=== PATIENT | female | born 1985 | race Caucasian/White ===

== ENCOUNTER 2018-06-07 15:07 | Inpatient (IN) | payer BC ==
[~2018-06-07 15:07] MED LIST: Acetaminophen 325 MG Tab ONE; Prenatal Multivitamin with Calcium/Folic Acid/Iron Tab ONE
[2018-06-07] MEDS ORDERED: Sodium Chloride 0.9% 10 ML SDV FLUSH PRN (16:19)
[2018-06-07] MEDS ORDERED: Nalbuphine 20 MG/ML 1 ML Syringe IVPUSH PRN ×2 (16:19→16:29)
[2018-06-07] MEDS ORDERED: Ampicillin 2 GM in Sodium Chloride 0.9% 100 ML IV STA (16:24)
[2018-06-07] MEDS ORDERED: Ampicillin 2 GM AdvVial IV ONE (16:25)
[2018-06-07] MEDS ORDERED: Ondansetron 4 MG/2 ML SDV IVPUSH PRN ×2 (16:29→17:34)
[2018-06-07] MEDS ORDERED: Lactated Ringers 1,000 ML IV SCH (16:30)
[2018-06-07] MEDS ORDERED: Oxytocin/Lactated Ringers 10 UNIT/1,000 ML BAG IV SCH ×2 (16:30)
--- NOTE | 2018-06-07 16:41 | PCM.LDHP ---
L&D History of Present Illness - General Date of Service: 06/07/18 Admit Problem/Dx: Patient Status Order with Admit Dx/Problem 06/07/18 16:19 Patient Status [ADT] Routine Admission Diagnosis/Problem Admission Diagnosis/Problem Labor established 06/07/18 16:30 33-year-old 3 para 2001 female with a 39-1/7 week intrauterine , active labor, progression of cervical dilation. 06/07/18 16:30 Source of Information: Patient History Limitations: Reports: No Limitations - History of Present Illness Introduction:: Lucina is a 33-year-old 3 para 2002 white female who is admitted in what appears to be active labor. Her cervix has changed from 2+ centimeters to 3 + centimeters and is 90% effaced versus 60% effaced yesterday in clinic. Baby is at a -2 station. This represents a significant change. She is avinash anywhere from 3-7 minutes, moderate intensity, some bloody show was noted. Patient is group B strep and has a history of very fast labor been in the hospital 09 minutes prior to her last baby being born. 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 Patient had menarche at age 18. Cycles every 28 days. Cycles are regular and patient is not using any control time conception. Her son last menstrual period was definite. 2 previous pregnancies include the following : 1. Male born 01[birth year]29/2012 at 40 weeks gestational age who delivered via after 8 hours of labor. 6 lbs. 8 oz. named Ismael 2. Male infant born 01/[birth year]/201539-3/7 weeks'one hour of labor7 lbs. 3 oz[facility] Patient's course was relatively unremarkable. She declined genetic testing at this time. She desires an epidural in labor and delivery. [place] depression screening score on 01/31/2018 was 0. She had her flu shot on 01/03/2018. She plans to breast-feed and bottlefeed. Group B strep screen was positive on urine culture with first visit. She is hypothyroid on medications. T Deppe was given on 04/16/2018 she is rubella immune. Patient's first visit was at 12 weeks and 6 days. Weight gain during the course of was 162.2-183.8 for a 21 pound weight gain. Fundal height growth was appropriate. I will signs remained stable throughout the course. Laboratory testing shows blood to be O+ with negative antibody screen. First hemoglobin was 13.6 g/dL and platelets are 284,000. She is rubella immune. RPR is nonreactive. Culture and first visit showed only rupee strep as pathogen. Chlamydia and gonorrhea assays both negative. TSH at first visit was 5 ,090,000/mL. Second trimester labs showed hemoglobin 11.2 and answered deciliter. Her platelets are 229,000. Direct screen test was normal at 128. RPR is nonreactive. Free T4 on 12/05/2017 and 1.14. TSH on 02/27/2018 was 3.4585 free T4 was 1.10. Allergies: Bee stings which causes swelling Medications: 1. Mupirocin 2% external ointment twice a day when necessary new para 2. Vitamin D3 2000 unit capsules 1 daily 3. Provera HFA inhalation aerosol solution 1-2+ every 6 hours when necessary as directed. Patient does not use this much. 4. Levothyroxine sodium 137 g per day 5. vitamin tabs 1 daily 6. Magnesium 200 mg oral tablet 7. Potassium tablets one daily Past medical history: 1. Hypothyroidism on replacement and clinically euthyroid 2. Normal spontaneous vaginal delivery 2 3. Asthmastable Past surgical history: Unremarkable Family history: 2 children ages 5 and 2 are alive and well. 2 siblings brother age 40 is alive with the exception of 1diabetes mellitus. Sister age 41 alive and well. Mother age 64 is alive and well with the exception of thyroid disease , depression and hypertension. Father age 65 saliva well with the exception of hyperlipidemia, hypertension and thyroid disease. Maternal and paternal aunts and uncles are generally healthy. Paternal grandmother alive in her 80s blind but to cause of blindness uncertain. Maternal grandfather secondary to cause unknown. Paternal grandfather secondary to renal failure and type 2 diabetes. Paternal grandfather causes of and age in unknown. No anesthesia, bleeding, blood clotting problems otherwise noted in the family. Social history: Patient is . 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 I did. Her is Julius. She does not use any significant most alcohol, drugs or tobacco. They live in [place]. Review of systems: In general patient has no complaints. Baby has been active. She is having contractions. Skin: Negative Lungs: No infectious symptoms or shortness of breath Cardiovascular: No chest pain or exercise intolerance Breasts: No lumps, changes in size, pain, dimpling, discharge or axillary or supraclavicular concerns other than those associated with .. GI: Negative : Gravid and size consistent with dates. Musculoskeletal: Negative Neurological: Negative In general the patient is well-developed, well-nourished, pleasant female of stated age in no acute distress. Skin is warm dry without lesions. HEENT, neck and back within normal limits. Lungs are clear with good breath sounds in all lung burgess. Cardiovascular exam shows regular and rhythm without murmurs. Abdomen is paternal with fundal height consistent with dates. Last fundal height clinic was 38 cm. Baby in vertex presentation. Genital cervix is 3+ centimeters, 90% effaced, -2, mid position, very soft, spell presentation, bag riggs intact, bloody show present. Extremities and neurological exam are grossly within normal limits. - Related Data Allergies/Adverse Reactions: Allergies Allergy/AdvReac Type Severity Reaction Status Date / Time No Known Allergies Allergy Verified 01/05/15 19:01 Home Medications: Home Meds Acetaminophen [Tylenol] 650 mg PO Q6H PRN #50 tablet 01/07/15 [Rx] Benzocaine/Menthol [Dermoplast Pain Relief [place]] 1 gm TOP .ASDIRECTED PRN #1 canister 01/07/15 [Rx] Ibuprofen [Motrin] 200 - 800 mg PO Q6H PRN #50 tablet 01/07/15 [Rx] Lanolin [Lansinoh HPA] 1 applic TOP ASDIRECTED PRN #1 tube 01/07/15 [Rx] Past Medical History - Past Health History Medical/Surgical History: Denies Medical/Surgical History Other Respiratory History: inhailer as needed H&P Review of Systems - Review of Systems: Review Of Systems: See Below L&D Exam - Exam Exam: See Below Problem List Initiated/Reviewed/Updated: Yes Orders Last 24hrs: Active Orders 24 hr Category Date Time Status Patient Status [ADT] Routine ADT 06/07/18 16:19 Active Activity as Tolerated [RC] PFP Care 06/07/18 16:19 Active Communication Order [RC] ASDIRECTED Care 06/07/18 16:19 Active Heart Tones [RC] ASDIRECTED Care 06/07/18 16:20 Active Non Stress Test [RC] PER UNIT ROUTINE Care 06/07/18 16:19 Active Notify Provider [RC] PFP Care 06/07/18 16:19 Active Notify Provider [RC] PRN Care 06/07/18 16:19 Active Peripheral IV Care [RC] . DIRECTED Care 06/07/18 16:20 Active Urinary Catheter Assessment [RC] ASDIRECTED Care 06/07/18 16:19 Active Vital Signs [RC] PER UNIT ROUTINE Care 06/07/18 16:19 Active Regular Diet [DIET] Diet 06/07/18 Dinner Active RAPID PLASMA REAGIN,RPR [CHEM] Routine Lab 06/07/18 16:19 Ordered Ampicillin 1 gm Med 06/07/18 20:30 Active Sodium Chloride 0.9% [Normal Saline] 100 ml IV Q4H Ampicillin 2 gm Med 06/07/18 16:24 Active Sodium Chloride 0.9% [Normal Saline] 100 ml IV ONETIME Lactated Ringers [Ringers, Lactated] 1,000 ml Med 06/07/18 16:30 Active IV ASDIRECTED Nalbuphine [Nubain] Med 06/07/18 16:19 Active 10 mg IVPUSH Q2H PRN Sodium Chloride 0.9% [Normal Saline] Med 06/07/18 16:19 Active 10 ml FLUSH ASDIRECTED PRN Electronic Heart Tones Ext w TOCO [WOMSER] Oth 06/07/18 16:19 Ordered Routine Electronic Heart Tones Internal [WOMSER] Per Unit Oth 06/07/18 16:19 Ordered Routine Peripheral IV Insertion Adult [OM.PC] Routine Oth 06/07/18 16:19 Ordered Resuscitation Status Routine Resus Stat 06/07/18 16:19 Ordered Medication Orders Ampicillin Sodium 2 gm/ Sodium (Chloride) 100 mls @ 200 mls/hr IV ONETIME STA Stop: 06/07/18 16:53 Ampicillin Sodium 1 gm/ Sodium (Chloride) 100 mls @ 200 mls/hr IV Q4H RADHA Lactated Ringer's (Ringers, Lactated) 1,000 mls @ 100 mls/hr IV ASDIRECTED RADHA Nalbuphine HCl (Nubain) 10 mg IVPUSH Q2H PRN PRN Reason: pain Sodium Chloride (Normal Saline) 10 ml FLUSH ASDIRECTED PRN PRN Reason: Keep Vein Open Assessment/Plan Comment:: 1. 39-1/7 week intrauterine , active labor with cervical change. 2. Group B strep screen positive-patient candidate for ampicillin group B strep prophylaxis per protocol. 3. Desires epidural in labor and delivery 4. Rubella titer immune 5. Center flu shot and her T dap 6. Has a history of very fast labors. Was on hospital 9 minutes, after relatively pain-free labor, prior to delivery with her last . 7. Patient plans to bottle feed and breast-feed. Plan: 1. Patient wishes to stay in the hospital as she would like to have an epidural. 2. Epidural for labor and analgesia 3. Group B strep prophylaxis with ampicillin per protocol 4. Anticipate normal spontaneous vaginal delivery. 5. Patient plans to breast-feed and bottlefeed also.
[2018-06-07] MEDS ORDERED: diphenhydrAMINE 50 MG/ML SDV IVPUSH PRN (17:34)
[2018-06-07] MEDS ORDERED: fentaNYL 100 MCG/2 ML SDV EPIDUR PRN (17:34)
[2018-06-07] MEDS ORDERED: ePHEDrine 50 MG/ML SDV IVPUSH PRN (17:34)
[2018-06-07] MEDS ORDERED: fentaNYL/Bupivacaine-NS 2 MCG/ML-0.125%/PF 100 ML Bag EP SCH (17:45)
--- NOTE | 2018-06-07 18:18 | PCM.PREANE ---
Preanesthetic Assessment - Procedure Proposed Procedure: MARIA G - Anesthesia/Transfusion/Family Hx Anesthesia History: Prior Anesthesia Without Reaction Family History of Anesthesia Reaction: No Transfusion History: No Prior Transfusion(s) - Review of Systems General: No Symptoms Pulmonary: No Symptoms Cardiovascular: No Symptoms Gastrointestinal: No Symptoms Neurological: No Symptoms Other: Reports: Thyroid Problems (hypothyroid) - Physical Assessment NPO Status Date: 06/07/18 NPO Status Time: 15:00 Respiratory Rate: 16 Vital Signs: Last Vital Signs Temp 37.1 C 06/07/18 16:19 Pulse 75 06/07/18 16:19 Resp 16 06/07/18 16:19 BP 120/74 06/07/18 16:19 Pulse Ox Height: 1.65 m Weight: 80.739 kg ASA Class: 2 Mental Status: Alert & Oriented x3 Airway Class: Mallampati = 1 Dentition: Reports: Normal Dentition Thyro-Mental Finger Breadths: 3 Mouth Opening Finger Breadths: 3 ROM/Head Extension: Full Lungs: Clear to Auscultation, Normal Respiratory Effort Cardiovascular: Regular Rate, Regular Rhythm - Lab Values: Laboratory Last Values WBC 9.58 K/mm3 (3.98-10.04) 06/07/18 16:35 RBC 4.09 M/mm3 (3.98-5.22) 06/07/18 16:35 Hgb 11.3 gm/L (11.2-15.7) 06/07/18 16:35 Hct 34.3 % (34.1-44.9) 06/07/18 16:35 MCV 83.9 fl (79.4-94.8) 06/07/18 16:35 MCH 27.6 pg (25.6-32.2) 06/07/18 16:35 MCHC 32.9 g/dl (32.2-35.5) 06/07/18 16:35 RDW Std Deviation 40.0 fL (36.4-46.3) 06/07/18 16:35 Plt Count 196 K/mm3 (182-369) 06/07/18 16:35 MPV 10.4 fl (9.4-12.3) 06/07/18 16:35 Neut % (Auto) 83.1 % (34.0-71.1) H 06/07/18 16:35 Lymph % (Auto) 9.4 % (19.3-51.7) L 06/07/18 16:35 [place] % (Auto) 5.6 % (4.7-12.5) 06/07/18 16:35 Eos % (Auto) 0.2 (0.7-5.8) L 06/07/18 16:35 Baso % (Auto) 0.2 % (0.1-1.2) 06/07/18 16:35 Neut # (Auto) 7.96 K/mm3 (1.56-6.13) H 06/07/18 16:35 Lymph # (Auto) 0.90 K/mm3 (1.18-3.74) L 06/07/18 16:35 [place] # (Auto) 0.54 K/mm3 (0.24-0.36) H 06/07/18 16:35 Eos # (Auto) 0.02 K/mm3 (0.04-0.36) L 06/07/18 16:35 Baso # (Auto) 0.02 K/mm3 (0.01-0.08) 06/07/18 16:35 Manual Slide Review Abnormal smear 06/07/18 16:35 - Allergies Allergies/Adverse Reactions: Allergies Allergy/AdvReac Type Severity Reaction Status Date / Time No Known Allergies Allergy Verified 01/05/15 19:01 - Blood Blood Available: No Product(s) Available: None - Anesthesia Plan Pre-Op Medication Ordered: None - Acknowledgements Anesthesia Type Planned: Epidural Pt an Appropriate Candidate for the Planned Anesthesia: Yes Alternatives and Risks of Anesthesia Discussed w Pt/Guardian: Yes Pt/Guardian Understands and Agrees with Anesthesia Plan: Yes PreAnesthesia Questionnaire - Past Health History Medical/Surgical History: Denies Medical/Surgical History Other Respiratory History: 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: - SUBSTANCE USE Smoking Status *Q: Never Smoker Second Hand Smoke Exposure: No Recreational Drug Use History: No - HOME MEDS Home Medications: Home Meds Acetaminophen [Tylenol] 650 mg PO Q6H PRN #50 tablet 01/07/15 [Rx] Benzocaine/Menthol [Dermoplast Pain Relief [place]] 1 gm TOP .ASDIRECTED PRN #1 canister 01/07/15 [Rx] Ibuprofen [Motrin] 200 - 800 mg PO Q6H PRN #50 tablet 01/07/15 [Rx] Lanolin [Lansinoh HPA] 1 applic TOP ASDIRECTED PRN #1 tube 01/07/15 [Rx] - CURRENT (IN HOUSE) MEDS Current Meds: Current Medications Diphenhydramine HCl (Benadryl) 25 mg IVPUSH Q6H PRN PRN Reason: Pruritis Ephedrine Sulfate (Ephedrine Sulfate) 5 mg IVPUSH ASDIRECTED PRN PRN Reason: Hypotension Fentanyl (Sublimaze) 100 mcg EPIDUR Q3H PRN PRN Reason: Pain Last Admin: 06/07/18 18:00 Dose: 100 mcg Fentanyl/Bupivacaine HCl (Yzwtbvfr-Thdjp-Gm 2 Mcg/Ml-0.125%) 100 ml EP ASDIRECTED RADHA Last Admin: 06/07/18 18:01 Dose: 100 ml Ampicillin Sodium 1 gm/ Sodium (Chloride) 100 mls @ 200 mls/hr IV Q4H RADHA Lactated Ringer's (Ringers, Lactated) 1,000 mls @ 100 mls/hr IV ASDIRECTED RADHA Oxytocin/Lactated Ringer's (Pitocin In Lr 10 Units/1,000 Ml) 10 unit in 1,000 mls @ 500 mls/hr IV .CONTINUOUS RADHA Oxytocin/Lactated Ringer's (Pitocin In Lr 10 Units/1,000 Ml) 10 unit in 1,000 mls @ 12 mls/hr IV TITRATE RADHA; Protocol Nalbuphine HCl (Nubain) 10 mg IVPUSH Q2H PRN PRN Reason: pain Ondansetron HCl (Zofran) 4 mg IVPUSH Q4H PRN PRN Reason: Nausea/Vomiting Ondansetron HCl (Zofran) 4 mg IVPUSH ONETIME PRN PRN Reason: Nausea/Vomiting Sodium Chloride (Normal Saline) 10 ml FLUSH ASDIRECTED PRN PRN Reason: Keep Vein Open Discontinued Medications Ampicillin Sodium (Ampicillin) Confirm Administered Dose 2 gm IV .STK-MED ONE Stop: 06/07/18 16:26 Ampicillin Sodium 2 gm/ Sodium (Chloride) 100 mls @ 200 mls/hr IV ONETIME STA Stop: 06/07/18 16:53 Last Admin: 06/07/18 16:37 Dose: 200 mls/hr Nalbuphine HCl (Nubain) 10 mg IVPUSH Q2H PRN PRN Reason: pain
--- NOTE | 2018-06-07 19:00 | PCM.SN ---
- Free Text/Narrative Note: Lucina is a 33-year-old 3 now para 3003 white female was admitted on the afternoon of 06/07/2018 at 39-1/7 weeks gestational age in labor. She had progressed in cervical dilation from 2 cm/50% effaced on 06/06/2018 to 3+ centimeters, 90% effaced, -2 station, mid position, cephalic presentation with bulging bag of riggs. She is avinash every 3-7 minutes, moderate intensity. She had a history of previous delivery occurring 9 minutes after she arrived at the hospital after relatively asymptomatic labor. Decision was made to keep her, start her on some ampicillin for group B strep positive status and to deliver with this hospital visit. She progressed rapidly to complete cervical dilation. She had an epidural placed for labor analgesia. She delivered a viable, alexander, female infant with Apgars of 8 and 9, a weight of 3140 g (6 pounds 14.8 ounces), a length of 19.0 inches in a left occiput anterior position at 1835 hrs. on 06/07/2018. The baby was placed on mom's abdomen and nose and mouth were bulb suctioned. Pitocin was started IV to increase uterine tone and decrease likelihood of bleeding. Cord was allowed to pulsate for approximately 1 minute and then was clamped 2 and cut by the baby's father. Cord blood was obtained. The patient was noted to have a first-degree perineal laceration which was repaired with a single [id number] of 3-0 Monocryl. Placenta delivered intact in a Jo presentation. It appeared complete and was discarded per patient desire. Estimated blood loss was approximately 100 mL. Condition: Good. Patient plans to breast-feed and bottlefeed.
[2018-06-07] MEDS ORDERED: Benzocaine/Menthol 20%-0.5% Spray 56 GM Canister TOP PRN (19:24)
[2018-06-07] MEDS ORDERED: Docusate Sodium 100 MG Cap PO PRN (19:24)
[2018-06-07] MEDS ORDERED: Witch Hazel Medicated Pads 100/Jar TOP PRN (19:24)
[2018-06-07] MEDS ORDERED: Lanolin 100% Cream 7 GM Tube TOP PRN (19:24)
[2018-06-07] MEDS ORDERED: Acetaminophen 325 MG Tab PO PRN (19:24)
[2018-06-07] MEDS ORDERED: Ampicillin 1 GM in Sodium Chloride 0.9% 100 ML IV SCH (20:30)
[2018-06-07] MEDS: Ibuprofen 600 MG Tab PO PRN (21:00)
[2018-06-07] MEDS ORDERED: Bupivacaine 0.25% 10 ML SDV ONE (22:00)
[2018-06-07] MEDS ORDERED: Lidocaine 1.5% with EPINEPHrine 1:200,000 5 ML Amp ONE (22:00)
[2018-06-08] MEDS: Ibuprofen 600 MG Tab PO PRN ×3 (02:53→20:37)
[2018-06-08] MEDS ORDERED: Prenatal Multivitamin with Calcium/Folic Acid/Iron Tab PO SCH (09:00)
--- NOTE | 2018-06-08 11:36 | PCM.SN ---
- Free Text/Narrative Note: Post Progress Note PPD # 1 Subjective: Doing well overall. Ambulating without difficulty. Lochia minimal. Voiding without difficulty. Tolerating regular diet without nausea or vomiting. Pain controlled with oral medications. Breast-feeding with minimal difficulty. Denies any headaches, vision changes, epigastric pain or shortness of breath. Objective: Vitals: Vital Signs - 24 hr 06/07/18 06/07/18 06/07/18 15:28 15:32 16:03 Temperature Temperature [ Tympanic] Pulse, 88 100 86 Peripheral Pulse, Peripheral [ Left Pulse Oximetry] Respiratory Rate Blood Pressure 120/74 Blood Pressure [Left Arm] O2 Sat by Pulse Oximetry 06/07/18 06/07/18 06/07/18 16:19 16:32 17:02 Temperature Temperature [ 37.1 C Tympanic] Pulse, 83 109 H Peripheral Pulse, 75 Peripheral [ Left Pulse Oximetry] Respiratory 16 Rate Blood Pressure Blood Pressure 120/74 [Left Arm] O2 Sat by Pulse Oximetry 06/07/18 06/07/18 06/07/18 17:33 18:00 18:18 Temperature Temperature [ Tympanic] Pulse, 112 H 84 Peripheral Pulse, Peripheral [ Left Pulse Oximetry] Respiratory 16 Rate Blood Pressure 131/60 Blood Pressure [Left Arm] O2 Sat by Pulse Oximetry 06/07/18 06/07/18 06/07/18 18:30 19:15 19:30 Temperature Temperature [ Tympanic] Pulse, 148 H 80 80 Peripheral Pulse, Peripheral [ Left Pulse Oximetry] Respiratory Rate Blood Pressure 101/50 L 109/64 119/63 Blood Pressure [Left Arm] O2 Sat by Pulse Oximetry 06/07/18 06/08/18 06/08/18 20:00 03:28 08:38 Temperature 36.3 C 36.7 C Temperature [ Tympanic] Pulse, 78 54 L 59 L Peripheral Pulse, Peripheral [ Left Pulse Oximetry] Respiratory 16 16 Rate Blood Pressure 126/73 128/91 H 137/96 H Blood Pressure [Left Arm] O2 Sat by Pulse 99 100 Oximetry Physical Exam General: Alert and oriented, no acute distress Lungs: Clear to auscultation bilaterally Heart: Regular rate and rhythm Abdomen: Soft, minimal appropriate tenderness, non-distended, fundus midline, nontender, and 2 finger breadths below the umbilicus Extremities: Trace edema in bilateral lower extremities to mid shins Laboratory Tests 06/07/18 06/08/18 06/08/18 Range/Units 16:35 10:14 10:14 WBC 9.58 12.09 H (3.98-10.04) K/mm3 RBC 4.09 3.87 L (3.98-5.22) M/mm3 Hgb 11.3 10.7 L (11.2-15.7) gm/L Hct 34.3 32.3 L (34.1-44.9) % MCV 83.9 83.5 (79.4-94.8) fl MCH 27.6 27.6 (25.6-32.2) pg MCHC 32.9 33.1 (32.2-35.5) g/dl RDW Std Deviation 40.0 39.1 (36.4-46.3) fL Plt Count 196 195 (182-369) K/mm3 MPV 10.4 10.7 (9.4-12.3) fl Neut % (Auto) 83.1 H (34.0-71.1) % Lymph % (Auto) 9.4 L (19.3-51.7) % [place] % (Auto) 5.6 (4.7-12.5) % Eos % (Auto) 0.2 L (0.7-5.8) Baso % (Auto) 0.2 (0.1-1.2) % Neut # (Auto) 7.96 H (1.56-6.13) K/mm3 Lymph # (Auto) 0.90 L (1.18-3.74) K/mm3 [place] # (Auto) 0.54 H (0.24-0.36) K/mm3 Eos # (Auto) 0.02 L (0.04-0.36) K/mm3 Baso # (Auto) 0.02 (0.01-0.08) K/mm3 Manual Slide Review Abnormal smear Sodium 137 (136-145) mEq/L Potassium 3.7 (3.5-5.1) mEq/L Chloride 105 (98-107) mEq/L Carbon Dioxide 22 (21-32) mEq/L Anion Gap 13.7 (5-15) BUN 9 (7-18) mg/dL Creatinine 0.5 L (0.55-1.02) mg/dL Est Cr Clr Drug Dosing 146.70 mL/min Estimated GFR (MDRD) > 60 (>60) mL/min BUN/Creatinine Ratio 18.0 (14-18) Glucose 85 (74-106) mg/dL Calcium 8.4 L (8.5-10.1) mg/dL Total Bilirubin 0.4 (0.2-1.0) mg/dL AST 23 (15-37) U/L ALT 21 (14-59) U/L Alkaline Phosphatase 96 (46-116) U/L Total Protein 5.9 L (6.4-8.2) g/dl Albumin 2.3 L (3.4-5.0) g/dl Globulin 3.6 gm/dL Albumin/Globulin Ratio 0.6 L (1-2) ASSESSMENT: 33-year-old female s/p normal vaginal delivery PPD #1, complicated by GBS positive and received 1 dose of ampicillin, hypothyroidism and asthma PLAN: Doing well Plan to check CBC, CMP and urine protein/creatinine ratio to rule out possible preeclampsia. Patient does not have any significant symptoms. Suspect that this may be mild gestational hypertension. Breast-feeding with minimal difficulty. Assist as needed Lochia minimal. Continue to monitor for appropriate lochia. Continue routine care Anticipate discharge home tomorrow Óscar Smith MD 11:35 AM 06/08/2018
--- NOTE | 2018-06-08 17:28 | PCM48HPAN ---
Post Anesthesia Note - EVALUATION WITHIN 48HRS OF ANESTHETIC Vital Signs in Normal Range: Yes Patient Participated in Evaluation: Yes Respiratory Function Stable: Yes Airway Patent: Yes Cardiovascular Function Stable: Yes Hydration Status Stable: Yes Pain Control Satisfactory: Yes Nausea and Vomiting Control Satisfactory: Yes Mental Status Recovered: Yes - COMMENTS/OBSERVATIONS Free Text/Narrative:: Patient denies any anesthetic complications.
--- NOTE | 2018-06-09 09:46 | PCM.SN ---
- Free Text/Narrative Note: Post Progress Note PPD # 2 Subjective: Doing well overall. Ambulating without difficulty. Lochia minimal. Voiding without difficulty. Tolerating regular diet without nausea or vomiting. Pain controlled with oral medications. Breast-feeding and bottle feeding with minimal difficulty. Objective: Vitals: Vital Signs - 24 hr 06/08/18 06/08/18 06/08/18 13:28 16:05 20:39 Temperature 36.5 C 36.6 C 36.5 C Pulse, 63 63 63 Peripheral Respiratory 16 16 17 Rate Blood Pressure 120/72 124/65 123/68 O2 Sat by Pulse 99 100 98 Oximetry Physical Exam General: Alert and oriented, no acute distress Lungs: Clear to auscultation bilaterally Heart: Regular rate and rhythm Abdomen: Soft, minimal appropriate tenderness, non-distended, fundus midline, nontender, and 2 finger breadths below the umbilicus Extremities: No edema Laboratory Results - last 24 hr 06/08/18 06/08/18 Range/Units 10:14 10:14 WBC 12.09 H (3.98-10.04) K/mm3 RBC 3.87 L (3.98-5.22) M/mm3 Hgb 10.7 L (11.2-15.7) gm/L Hct 32.3 L (34.1-44.9) % MCV 83.5 (79.4-94.8) fl MCH 27.6 (25.6-32.2) pg MCHC 33.1 (32.2-35.5) g/dl RDW Std Deviation 39.1 (36.4-46.3) fL Plt Count 195 (182-369) K/mm3 MPV 10.7 (9.4-12.3) fl Sodium 137 (136-145) mEq/L Potassium 3.7 (3.5-5.1) mEq/L Chloride 105 (98-107) mEq/L Carbon Dioxide 22 (21-32) mEq/L Anion Gap 13.7 (5-15) BUN 9 (7-18) mg/dL Creatinine 0.5 L (0.55-1.02) mg/dL Est Cr Clr Drug Dosing 146.70 mL/min Estimated GFR (MDRD) > 60 (>60) mL/min BUN/Creatinine Ratio 18.0 (14-18) Glucose 85 (74-106) mg/dL Calcium 8.4 L (8.5-10.1) mg/dL Total Bilirubin 0.4 (0.2-1.0) mg/dL AST 23 (15-37) U/L ALT 21 (14-59) U/L Alkaline Phosphatase 96 (46-116) U/L Total Protein 5.9 L (6.4-8.2) g/dl Albumin 2.3 L (3.4-5.0) g/dl Globulin 3.6 gm/dL Albumin/Globulin Ratio 0.6 L (1-2) ASSESSMENT: 33-year-old female s/p normal vaginal delivery PPD #2, complicated by GBS positive and received 1 dose of ampicillin, hypothyroidism and asthma PLAN: Doing well Patient with normal labs after her elevated blood pressures yesterday. No additional blood pressure elevations throughout the day. Breast-feeding and bottlefeeding with minimal difficulty. Assist as needed Lochia minimal. Continue to monitor for appropriate lochia. Continue routine care Discharge home today Óscar Smith MD 9:44 AM 06/09/2018
--- NOTE | 2018-06-09 09:50 | PCM.DCSUM1 ---
Discharge Summary - Hospital Course Free Text/Narrative:: Lucina is a 33-year-old 3 now para 3003 white female was admitted on the afternoon of 06/07/2018 at 39-1/7 weeks gestational age in labor. She had progressed in cervical dilation from 2 cm/50% effaced on 06/06/2018 to 3+ centimeters, 90% effaced, -2 station, mid position, cephalic presentation with bulging bag of riggs. She is avinash every 3-7 minutes, moderate intensity. She had a history of previous delivery occurring 9 minutes after she arrived at the hospital after relatively asymptomatic labor. Decision was made to keep her, start her on some ampicillin for group B strep positive status and to deliver with this hospital visit. She progressed rapidly to complete cervical dilation. She had an epidural placed for labor analgesia. She delivered a viable, alexander, female infant with Apgars of 8 and 9, a weight of 3140 g (6 pounds 14.8 ounces), a length of 19.0 inches in a left occiput anterior position at 1835 hrs. on 06/07/2018. The baby was placed on mom's abdomen and nose and mouth were bulb suctioned. Pitocin was started IV to increase uterine tone and decrease likelihood of bleeding. Cord was allowed to pulsate for approximately 1 minute and then was clamped 2 and cut by the baby's father. Cord blood was obtained. The patient was noted to have a first-degree perineal laceration which was repaired with a single [id number] of 3-0 Monocryl. Placenta delivered intact in a Jo presentation. It appeared complete and was discarded per patient desire. Estimated blood loss was approximately 100 mL. Condition: Good. Patient plans to breast-feed and bottlefeed. HPI Initial Comments: Lucina is a 33-year-old 3 now para 3003 white female was admitted on the afternoon of 06/07/2018 at 39-1/7 weeks gestational age in labor. She had progressed in cervical dilation from 2 cm/50% effaced on 06/06/2018 to 3+ centimeters, 90% effaced, -2 station, mid position, cephalic presentation with bulging bag of riggs. She is avinash every 3-7 minutes, moderate intensity. She had a history of previous delivery occurring 9 minutes after she arrived at the hospital after relatively asymptomatic labor. Decision was made to keep her, start her on some ampicillin for group B strep positive status and to deliver with this hospital visit. She progressed rapidly to complete cervical dilation. She had an epidural placed for labor analgesia. She delivered a viable, alexander, female with Apgars of 8 and 9, a weight of 3140 g (6 pounds 14.8 ounces), a length of 19.0 inches in a left occiput anterior position at 1835 hrs. on 06/07/2018. The baby was placed on mom's abdomen and nose and mouth were bulb suctioned. Pitocin was started IV to increase uterine tone and decrease likelihood of bleeding. Cord was allowed to pulsate for approximately 1 minute and then was clamped 2 and cut by the baby's father. Cord blood was obtained. The patient was noted to have a first-degree perineal laceration which was repaired with a single evyhle-mp-apojf of 3-0 Monocryl. Placenta delivered intact in a Jo presentation. It appeared complete and was discarded per patient desire. Estimated blood loss was approximately 100 mL. Condition: Good. Patient plans to breast-feed and bottlefeed. Brief History: Lucina is a 33-year-old 3 now para 3003 white female was admitted on the afternoon of 06/07/2018 at 39-1/7 weeks gestational age in labor. She had progressed in cervical dilation from 2 cm/50% effaced on 2018 to 3+ centimeters, 90% effaced, -2 station, mid position, cephalic presentation with bulging bag of riggs. She is avinash every 3-7 minutes, moderate intensity. She had a history of previous delivery occurring 9 minutes after she arrived at the hospital after relatively asymptomatic labor. Decision was made to keep her, start her on some ampicillin for group B strep positive status and to deliver with this hospital visit. She progressed rapidly to complete cervical dilation. She had an epidural placed for labor analgesia. She delivered a viable, alexander, female infant with Apgars of 8 and 9, a weight of 3140 g (6 pounds 14.8 ounces), a length of 19.0 inches in a left occiput anterior position at 1835 hrs. on 06/07/2018. The baby was placed on mom's abdomen and nose and mouth were bulb suctioned. Pitocin was started IV to increase uterine tone and decrease likelihood of bleeding. Cord was allowed to pulsate for approximately 1 minute and then was clamped 2 and cut by the baby' s father. Cord blood was obtained. The patient was noted to have a first- degree perineal laceration which was repaired with a single ctpfkz-dd-aowcu of 3 -0 Monocryl. Placenta delivered intact in a Jo presentation. It appeared complete and was discarded per patient desire. Estimated blood loss was approximately 100 mL. Condition: Good. Patient plans to breast-feed and bottlefeed. Diagnosis: Stroke: No - Discharge Data Discharge Date: 06/09/18 Discharge Disposition: Home, Self-Care 01 Condition: Good - Discharge Diagnosis/Problem(s) (1) 39 weeks gestation of SNOMED Code(s): 23101052 ICD Code: Z3A.39 - 39 WEEKS GESTATION OF Status: Acute Current Visit: Yes (2) Asthma affecting , antepartum SNOMED Code(s): 895599328, 550150022 ICD Code: O99.519 - DISEASES OF THE RESP SYS COMP , UNSP TRIMESTER; J45.909 - UNSPECIFIED ASTHMA, UNCOMPLICATED Status: Acute Current Visit: Yes (3) Hypothyroid in , antepartum SNOMED Code(s): 056632335 ICD Code: O99.280 - ENDO, NUTRITIONAL AND METAB DISEASES COMP PREG, UNSP TRI ; E03.9 - HYPOTHYROIDISM, UNSPECIFIED Status: Acute Current Visit: Yes (4) GBS (group B Streptococcus carrier), +RV culture, currently SNOMED Code(s): 6313142800760, 566933448, 5688558917718 ICD Code: O99.820 - STREPTOCOCCUS B CARRIER STATE COMPLICATING Status: Acute Current Visit: Yes (5) Vaginal delivery SNOMED Code(s): 788783934 ICD Code: O80 - ENCOUNTER FOR FULL-TERM UNCOMPLICATED DELIVERY Status: Acute Current Visit: Yes (6) First degree laceration of perineum, delivered, current hospitalization SNOMED Code(s): 109009177, 277089863 ICD Code: O70.0 - FIRST DEGREE PERINEAL LACERATION DURING DELIVERY Status: Acute Current Visit: No - Patient Summary/Data Operative Procedure(s) Performed: None Complications: None Hospital Course: Lucina Salmon was admitted for spontaneous labor. On admission her cervix was dilated to 3+ cm. She was GBS positive and was started on ampicillin for GBS prophylaxis. She received a total of 1 dose prior to delivery. She was given an epidural for anesthesia. She progressed to complete and began pushing. On 06/07/2018 she had a normal vaginal delivery of a live female infant at 1835. Apgars of 8 and 9. Weight of 3140 g (6 pounds 14.8 ounces). Her course was complicated by mild elevations of blood pressure on the morning of day #1. She had labs performed that were not consistent with preeclampsia and suspected that she may have had a small amount of gestational hypertension in the period. Her pain was well controlled and she had minimal lochia. She was ambulating, tolerating a regular diet and voiding normally. She was breast and bottle feeding with minimal difficulty. She was afebrile and her hematocrit was 32.3 on day #1. She desired to be discharged home on the morning of PPD #2. Her blood type is O+. - Patient Instructions Diet: Regular Diet as Tolerated Activity: Apply Ice, As Tolerated Activity, Other: Nothing in the vagina for 6 weeks Driving: May Drive Today Showering/Bathing: May Shower Notify Provider of: Fever, Increased Pain, Swelling and Redness, Drainage, Nausea and/or Vomiting Other/Special Instructions: Please contact your physician's office if you have heavy vaginal bleeding enough to soak a pad in less than an hour for several hours. Monitor for any signs of an infection in the breasts with severe pain or redness of the breast. - Discharge Plan *PRESCRIPTION DRUG MONITORING PROGRAM REVIEWED*: Not Applicable *COPY OF PRESCRIPTION DRUG MONITORING REPORT IN PATIENT SHERLY: Not Applicable Home Medications: Home Meds Acetaminophen [Tylenol] 650 mg PO Q6H PRN #50 tablet 01/07/15 [Rx] Benzocaine/Menthol [Dermoplast Pain Relief [place]] 1 gm TOP .ASDIRECTED PRN #1 canister 01/07/15 [Rx] Ibuprofen [Motrin] 200 - 800 mg PO Q6H PRN #50 tablet 01/07/15 [Rx] Lanolin [Lansinoh HPA] 1 applic TOP ASDIRECTED PRN #1 tube 01/07/15 [Rx] Docusate Sodium [Colace] 100 mg PO BID PRN cap 06/09/18 [Rx] Vit with Ca/FA/Iron [ Plus Iron] 1 each PO DAILY tablet [Rx] Carin Song [Tucks] 1 pad TOP ASDIRECTED PRN pad 06/09/18 [Rx] Patient Handouts: Home Care Instructions for Mom, Care After Vaginal Delivery Referrals: Sánchez Pozo MD [Primary Care Provider] - (Follow-up in 2-3 weeks for routine visit or earlier as needed.) - Discharge Summary/Plan Comment DC Time >30 min.: No - Patient Data Vitals - Most Recent: Last Vital Signs Temp 36.5 C 06/08/18 20:39 Pulse 63 06/08/18 20:39 Resp 17 06/08/18 20:39 BP 123/68 06/08/18 20:39 Pulse Ox 98 06/08/18 20:39 Weight - Most Recent: 80.739 kg I&O - Last 24 hours: Intake & Output 06/08/18 06/09/18 06/09/18 22:59 06:59 14:59 Intake Total 120 Balance 120 Lab Results - Last 24 hrs: Laboratory Results - last 24 hr 06/08/18 06/08/18 Range/Units 10:14 10:14 WBC 12.09 H (3.98-10.04) K/mm3 RBC 3.87 L (3.98-5.22) M/mm3 Hgb 10.7 L (11.2-15.7) gm/L Hct 32.3 L (34.1-44.9) % MCV 83.5 (79.4-94.8) fl MCH 27.6 (25.6-32.2) pg MCHC 33.1 (32.2-35.5) g/dl RDW Std Deviation 39.1 (36.4-46.3) fL Plt Count 195 (182-369) K/mm3 MPV 10.7 (9.4-12.3) fl Sodium 137 (136-145) mEq/L Potassium 3.7 (3.5-5.1) mEq/L Chloride 105 (98-107) mEq/L Carbon Dioxide 22 (21-32) mEq/L Anion Gap 13.7 (5-15) BUN 9 (7-18) mg/dL Creatinine 0.5 L (0.55-1.02) mg/dL Est Cr Clr Drug Dosing 146.70 mL/min Estimated GFR (MDRD) > 60 (>60) mL/min BUN/Creatinine Ratio 18.0 (14-18) Glucose 85 (74-106) mg/dL Calcium 8.4 L (8.5-10.1) mg/dL Total Bilirubin 0.4 (0.2-1.0) mg/dL AST 23 (15-37) U/L ALT 21 (14-59) U/L Alkaline Phosphatase 96 (46-116) U/L Total Protein 5.9 L (6.4-8.2) g/dl Albumin 2.3 L (3.4-5.0) g/dl Globulin 3.6 gm/dL Albumin/Globulin Ratio 0.6 L (1-2) Med Orders - Current: Current Medications Acetaminophen (Tylenol) 650 mg PO Q4H PRN PRN Reason: mild pain or fever Last Admin: 06/08/18 16:10 Dose: 650 mg Benzocaine/Menthol (Dermoplast Pain Relief [place]) 0 gm TOP ASDIRECTED PRN PRN Reason: Perineal Comfort Measure Last Admin: 06/07/18 21:00 Dose: 1 can Docusate Sodium (Colace) 100 mg PO BID PRN PRN Reason: Constipation Emollient Ointment (Lansinoh Hpa) 0 gm TOP ASDIRECTED PRN PRN Reason: Sore Nipples Last Admin: 06/07/18 21:01 Dose: 1 tube Ibuprofen (Motrin) 600 mg PO Q4H PRN PRN Reason: Mild pain or fever Last Admin: 06/08/18 20:37 Dose: 600 mg Prenat Multivit/Special Events Driver/Iron/Folic Ac ( Plus Iron) 1 each PO DAILY RADHA Last Admin: 06/08/18 10:16 Dose: 1 each Witch Nohemi (Tucks) 1 pad TOP ASDIRECTED PRN PRN Reason: Hemorrhoid pain Last Admin: 06/07/18 21:00 Dose: 1 container Discontinued Medications Ampicillin Sodium (Ampicillin) Confirm Administered Dose 2 gm IV .STK-MED ONE Stop: 06/07/18 16:26 Last Admin: 06/07/18 22:24 Dose: Not Given Diphenhydramine HCl (Benadryl) 25 mg IVPUSH Q6H PRN PRN Reason: Pruritis Ephedrine Sulfate (Ephedrine Sulfate) 5 mg IVPUSH ASDIRECTED PRN PRN Reason: Hypotension Fentanyl (Sublimaze) 100 mcg EPIDUR Q3H PRN PRN Reason: Pain Last Admin: 06/07/18 18:00 Dose: 100 mcg Fentanyl/Bupivacaine HCl (Ylrveecz-Fbjnd-Ew 2 Mcg/Ml-0.125%) 100 ml EP ASDIRECTED RADHA Last Admin: 06/07/18 18:01 Dose: 100 ml Ampicillin Sodium 2 gm/ Sodium (Chloride) 100 mls @ 200 mls/hr IV ONETIME STA Stop: 06/07/18 16:53 Last Admin: 06/07/18 16:37 Dose: 200 mls/hr Ampicillin Sodium 1 gm/ Sodium (Chloride) 100 mls @ 200 mls/hr IV Q4H RADHA Lactated Ringer's (Ringers, Lactated) 1,000 mls @ 100 mls/hr IV ASDIRECTED RADHA Last Admin: 06/07/18 16:00 Dose: 100 mls/hr Oxytocin/Lactated Ringer's (Pitocin In Lr 10 Units/1,000 Ml) 10 unit in 1,000 mls @ 500 mls/hr IV .CONTINUOUS RADHA Last Admin: 06/07/18 17:35 Dose: 500 mls/hr Oxytocin/Lactated Ringer's (Pitocin In Lr 10 Units/1,000 Ml) 10 unit in 1,000 mls @ 12 mls/hr IV TITRATE RADHA; Protocol Nalbuphine HCl (Nubain) 10 mg IVPUSH Q2H PRN PRN Reason: pain Nalbuphine HCl (Nubain) 10 mg IVPUSH Q2H PRN PRN Reason: pain Ondansetron HCl (Zofran) 4 mg IVPUSH Q4H PRN PRN Reason: Nausea/Vomiting Ondansetron HCl (Zofran) 4 mg IVPUSH ONETIME PRN PRN Reason: Nausea/Vomiting Sodium Chloride (Normal Saline) 10 ml FLUSH ASDIRECTED PRN PRN Reason: Keep Vein Open
[2018-06-09 10:24] VITALS: BP 132/85
== END 2018-06-09 11:30 | disposition home or self-care (01) | DRG 560 ==
LOC: JD.OBCHECK 15:07 → JD.OB 15:07 → JD.OBCHECK 16:19 → OBSVTOIN 18:35 → JD.OB 18:36
PROVIDERS: ADMIT Obstetrics & Gynecology; ATTEND Obstetrics & Gynecology
PROC: 10E0XZZ Delivery of Products of Conception, External Approach (ICD-10-PCS; principal; 2018-06-07)
PROC: 0HQ9XZZ Repair Perineum Skin, External Approach (ICD-10-PCS; 2018-06-07)
PROC: 00HU33Z Insertion of Infusion Device into Spinal Canal, Percutaneous Approach (ICD-10-PCS; 2018-06-07)
PROC: 3E0R3BZ Introduction of Anesthetic Agent into Spinal Canal, Percutaneous Approach (ICD-10-PCS; 2018-06-07)
DX: O70.0 First degree perineal laceration during delivery (principal); O99.284 Endocrine, nutritional and metabolic diseases complicating childbirth; E03.9 Hypothyroidism, unspecified; O99.52 Diseases of the respiratory system complicating childbirth; J45.909 Unspecified asthma, uncomplicated; O99.824 Streptococcus B carrier state complicating childbirth; Z3A.39 39 weeks gestation of pregnancy; Z37.0 Single live birth; O13.5 Gestational [pregnancy-induced] hypertension without significant proteinuria, complicating the puerperium; Z79.890 Hormone replacement therapy; Z79.899 Other long term (current) drug therapy; Z91.030 Bee allergy status
CPT/HCPCS: 36415; 59025; 59409; 80053; 82570; 84156; 85025; 85027; 86592; A9270-GY; J0290; J2590; J3010; J3490; J7030; J7120